=== PATIENT | female | born 1985 | race Caucasian/White ===

== ENCOUNTER 2017-03-29 08:05 | Emergency (ER) | payer OTHER ==
[~2017-03-29] VITALS: Ht 160 cm; Wt 50.0 kg
[2017-03-29 08:07] VITALS: BP 153/90; PULSE 84; RESP 17; TEMP 98.5; O2SAT 99
[2017-03-29] MEDS ORDERED: VALA1TAB PO (08:19)
[2017-03-29] MEDS ORDERED: PREVTAB PO (08:19)
[2017-03-29] MEDS ORDERED: AZIT250T3 PO (08:19)
[2017-03-29] MEDS ORDERED: PRED5PAK PO (08:19)
[2017-03-29 08:32] VITALS: BP 136/86; PULSE 88; RESP 15; TEMP 97.7; O2SAT 100
[2017-03-29 09:05] LABS: AUTOMATED NEUTROPHIL # 5.3 TH/MM3 (1.8-7.7); BASOPHIL % 0.5 % (0.0-2.0); EOSINOPHIL # 0.1 TH/MM3 (0-0.4); EOSINOPHIL % 1.6 % (0.0-4.0); HEMATOCRIT 41.6 % (35.0-46.0); HEMO FLAGS DIFF FINAL; LYMPH % 27.9 % (9.0-44.0); LYMPHOCYTE # 2.4 TH/MM3 (1.0-4.8); MEAN CELL VOLUME 93.3 FL (80.0-100.0); MEAN CORPUSCULAR HEMOGLOBIN 31.6 PG (27.0-34.0); MEAN CORPUSCULAR HGB CONC 33.9 % (32.0-36.0); MONO % 8.4 % (0.0-8.0); NEUT % 61.6 % (16.0-70.0); PLATELET COUNT 306 TH/MM3 (150-450); RED BLOOD COUNT 4.46 MIL/MM3 (4.00-5.30); RED CELL DISTRIBUTION WIDTH 13.4 % (11.6-17.2); WHITE BLOOD COUNT 8.7 TH/MM3 (4.0-11.0)
[2017-03-29 09:20] LABS: ANION GAP 10 MEQ/L (5-15); AST (GOT) 21 U/L (15-37); BICARBONATE 26.1 MEQ/L (21.0-32.0); BLOOD UREA NITROGEN 7 MG/DL (7-18); CHLORIDE 103 MEQ/L (98-107); GLOMERULAR FILTRATION RATE 86 ML/MIN (>89); POTASSIUM 3.7 MEQ/L (3.5-5.1); SODIUM (NA) 139 MEQ/L (136-145)
[2017-03-29 09:23] LABS: ALKALINE PHOSPHATASE 69 U/L (45-117); ALT (GPT) 24 U/L (10-53); TOTAL BILIRUBIN ADULT 0.4 MG/DL (0.2-1.0)
[2017-03-29] MEDS ORDERED: METR-1 PO (10:39)
--- NOTE | 2017-03-29 10:40 | PD ---
HPI Chief Complaint: GI Complaint Time Seen by Provider: 08:55 Travel History International Travel<30 days: No Contact w/Intl Traveler<30days: No Traveled to known affect area: No History of Present Illness HPI Patient 31-year-old female presents with nausea vomiting and diarrhea for the past few days. She is an employee here and went to [employer] and they recommended she come to the emergency department prior to being cleared to go back to work. 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 She has been on azithromycin recently for sinus infection. She denies any fever states mild abdominal cramping. No vaginal bleeding or vaginal discharge. PFSH Past Medical History Medical History: Denies Significant Hx Tetanus Vaccination: > 5 Years Influenza Vaccination: Yes ?: Not Past Surgical History Section: Yes Joint Replacement: Yes (left hip arthroscopy) Other Surgery: Yes (I&D breast abcess) Social History Alcohol Use: Yes (occassionally) Tobacco Use: No Substance Use: No Allergies-Medications (Allergen,Severity, Reaction): Coded Allergies: Amoxicillin (Verified Allergy, Severe, Hives, 03/29/17) Reported Meds & Prescriptions Reported Meds & Active Scripts Active Zofran Odt (Ondansetron Odt) 4 Mg Tab 4 Mg SL Q8HR PRN Flagyl (Metronidazole) 500 Mg Tab 500 Mg PO BID 14 Days Reported Azithromycin 250 Mg Tab 250 Mg PO DAILY Valacyclovir (Valacyclovir HCl) 1 Gm Tab 1,000 Mg PO TID Prednisone (21) 5 mg tab Dose Pack (Prednisone) 5 Mg Dspk 5 Mg PO DIRECTED Previfem (Norgestimate-Ethinyl Estradiol) 0.25-35 mg-Mcg Tab 1 Tab PO DAILY Review of Systems Except as stated in HPI: all other systems reviewed are Neg Physical Exam Narrative GENERAL: Well-developed well-nourished no apparent distress SKIN: Focused skin assessment warm/dry. HEAD: Atraumatic. Normocephalic. EYES: Pupils equal and round. No scleral icterus. No injection or drainage. ENT: No nasal bleeding or discharge. Mucous membranes pink and moist. NECK: Trachea midline. No JVD. CARDIOVASCULAR: Regular rate and rhythm. No murmur appreciated. RESPIRATORY: No accessory muscle use. Clear to auscultation. Breath sounds equal bilaterally. GASTROINTESTINAL: Abdomen soft, non-tender, nondistended. Hepatic and splenic margins not palpable. MUSCULOSKELETAL: No obvious deformities. No clubbing. No cyanosis. No edema. NEUROLOGICAL: Awake and alert. No obvious cranial nerve deficits. Motor grossly within normal limits. Normal speech. PSYCHIATRIC: Appropriate mood and affect; insight and judgment normal. Data Data Last Documented VS Vital Signs Date Time Temp Pulse Resp B/P Pulse Ox O2 Delivery O2 Flow Rate FiO2 03/29/17 08:32 97.7 88 15 136/86 100 Room Air Orders Complete Blood Count With Diff (03/29/17 08:13) Comprehensive Metabolic Panel (03/29/17 08:13) Iv Access Insert/Monitor (03/29/17 08:13) Ecg Monitoring (03/29/17 08:13) Oximetry (03/29/17 08:13) Ed Urine Pregnancytest Poc (03/29/17 08:13) C Diff Toxin Pcr (03/29/17 08:13) Sodium Chlor 0.9% 1000 Ml Inj (Ns 1000 M (03/29/17 10:45) Labs Laboratory Tests Test 03/29/17 03/29/17 08:38 08:50 White Blood Count 8.7 TH/MM3 Red Blood Count 4.46 MIL/MM3 Hemoglobin 14.1 GM/DL Hematocrit 41.6 % Mean Corpuscular Volume 93.3 FL Mean Corpuscular Hemoglobin 31.6 PG Mean Corpuscular Hemoglobin 33.9 % Concent Red Cell Distribution Width 13.4 % Platelet Count 306 TH/MM3 Mean Platelet Volume 8.2 FL Neutrophils (%) (Auto) 61.6 % Lymphocytes (%) (Auto) 27.9 % Monocytes (%) (Auto) 8.4 % Eosinophils (%) (Auto) 1.6 % Basophils (%) (Auto) 0.5 % Neutrophils # (Auto) 5.3 TH/MM3 Lymphocytes # (Auto) 2.4 TH/MM3 Monocytes # (Auto) 0.7 TH/MM3 Eosinophils # (Auto) 0.1 TH/MM3 Basophils # (Auto) 0.0 TH/MM3 CBC Comment DIFF FINAL Differential Comment Sodium Level 139 MEQ/L Potassium Level 3.7 MEQ/L Chloride Level 103 MEQ/L Carbon Dioxide Level 26.1 MEQ/L Anion Gap 10 MEQ/L Blood Urea Nitrogen 7 MG/DL Creatinine 0.79 MG/DL Estimat Glomerular Filtration 86 ML/MIN Rate Random Glucose 88 MG/DL Calcium Level 9.7 MG/DL Total Bilirubin 0.4 MG/DL Aspartate Amino Transf 21 U/L (AST/SGOT) Alanine Aminotransferase 24 U/L (ALT/SGPT) Alkaline Phosphatase 69 U/L Total Protein 7.4 GM/DL Albumin 3.8 GM/DL Stool C. difficile Toxin (PCR) NEGATIVE Stl C. difficile Toxin PRESUMPTIVE Epiderm 027 NEGATIVE MDM Medical Decision Making Medical Screen Exam Complete: Yes Emergency Medical Condition: Yes Differential Diagnosis Infectious diarrhea, C. difficile, dehydration, . Narrative Course Patient was roomed in the emergency department, test negative, CBC and CMP are within normal limits, C. difficile test was ordered and sent and is pending at time of patient's discharge. She appears well and is no indication further workup currently. I discussed need for follow-up with employee health for clearance to go back to work as well as follow-up the primary care physician. She will be started on empiric Flagyl. She stable for discharge at this time. Diagnosis Primary Impression: Diarrhea Qualified Code: A09 - Diarrhea of presumed infectious origin Referrals: Kali Nagy MD Additional Instructions: Follow-up with employee med, able to determine when it is safe for you to return to work. Med/Other Pt SpecificInfo: Prescription(s) given Scripts Ondansetron Odt (Zofran Odt)4 Mg Tab4 Mg SL Q8HR PRN (Nausea/Vomiting) #30 TAB Ref 0 Prov:Mulugeta Ho MD 03/29/17 Metronidazole (Flagyl)500 Mg Ale841 Mg PO BID 14 Days Ref 0 Prov:Mulugeta Ho MD 03/29/17 Disposition: 01 DISCHARGE HOME Condition: Stable Mulugeta Ho MD March 29, 2017 10:40
[2017-03-29] MEDS ORDERED: ZOFR4TAB3 SL (10:42)
[2017-03-29] MEDS ORDERED: SODIUM CHLOR 0.9% 1000 ML INJ 1,000 ML IV ONE (10:45)
[2017-03-29 11:35] LABS: C. DIFF EPI 027 PRESUMPTIVE NEGATIVE (NEGATIVE); C. DIFF TOXIN PCR NEGATIVE (NEGATIVE)
== END 2017-03-29 11:27 | disposition home or self-care (01) ==
LOC: NEPE 08:05
DX: R19.7 Diarrhea, unspecified (principal)
CPT/HCPCS: 80053; 84703; 85025; 87493; 96360; 99284; J7030